=== PATIENT | female | born 1965 | race Caucasian/White ===

== ENCOUNTER 2022-01-08 15:17 | Emergency (ER) | payer OTHER, SELFPAY ==
[2022-01-08 15:18] VITALS: BP 172/104; PULSE 90; RESP 18; TEMP 36.2; O2SAT 95; BMI 39.0
[2022-01-08 15:35] VITALS: O2SAT 99
--- NOTE | 2022-01-08 15:35 | EKG12_ITS ---
Test Reason : CP Blood Pressure : / mmHG Vent. Rate : 072 BPM Atrial Rate : 072 BPM P-R Int : 134 ms QRS Dur : 080 ms QT Int : 386 ms P-R-T Axes : 039 043 067 degrees QTc Int : 422 ms Normal sinus rhythm Low voltage QRS Borderline ECG Confirmed by YUE MISHRA, DAVID ([id number]), publication editor KEVIN ESTRADA ([id number]) on 01/10/2022 9:39:21 AM Referred By: DAKOTA/DOMITILA Confirmed By:DAVID TURNER MD
[2022-01-08 15:55] LABS: Absolute Neutrophil Count 3.9 X10^3/uL (2.0-7.7); Basophil# 0.03 X10^3/uL; Basophil% 0.4 % (0-1); Eosinophil# 0.46 X10^3/uL; Eosinophils% 6.8 % (0-5); Hematocrit 41.3 % (37-47); Hemoglobin 14.2 g/dL (12.0-15.0); Lymphocyte % 28.1 % (19-41); Mean Corp Hgb Conc 34.4 g/dL (32-36); Mean Corpuscular Hgb 30.5 pg (27.0-32.0); Mean Corpuscular Volume 88.6 fL (81-99); Mean Platelet Vol. 10.2 fl (6.2-12.0); Monocyte# 0.44 X10^3/uL; Monocyte% 6.5 % (0-10); NRBC Flagged by Analyzer 0 % (0-5); Neutrophil % 57.9 % (47-70); Platelet Count 244 K/mm3 (150-450); RBC Distribution Width CV 12.2 % (11.6-14.6); RBC Distribution Width SD 39.2 fl (35.1-43.9); Red Blood Count 4.66 M/mm3 (4.2-5.4); White Blood Count 6.8 K/mm3 (4.4-11.0)
[2022-01-08 16:17] LABS: Anion Gap 5 (5-15); BUN 19 mg/dL (7-18); BUN/Creat Ratio 22.4 RATIO (10-20); Calcium,Total 9.6 mg/dL (8.5-10.1); Chloride 110 mmol/L (98-107); Creatinine, Serum 0.85 mg/dL (0.55-1.02); EST Glomerular Filtration Rate 74 mL/min (>60); Est Glom Filt Rate - Afr Amer 89 mL/min (>60); Estimated Creatinine Clearance 100.14 ml/min; Glucose 114 mg/dL (74-106); Potassium 3.8 mmol/L (3.5-5.1); Sodium Level 141 mmol/L (136-145); Troponin-I HS 4 pg/mL (3.0-54.0)
--- NOTE | 2022-01-08 16:27 | RAD_ITS ---
History: chest pain EXAMINATION/TECHNIQUE: XR Chest 1 View: Portable COMPARISON: July 11, 2017 FINDINGS: LINES/DEVICES: None. LUNGS: No consolidation, edema or effusion. No pneumothorax. MEDIASTINUM AND CARDIOVASCULAR STRUCTURES: Cardiac silhouette not enlarged. And calcified mediastinal and hilar lymph nodes again seen. BONES AND SOFT TISSUES: Unremarkable. RAD/Chest 1 View (Portable) IMPRESSION: No radiographic evidence of acute cardiopulmonary disease. Old granulomatous disease. at 1658 Reported and signed by: Carlos Whitlock MD Electronically Signed: Carlos Whitlock MD at 16:57 EDT ,
--- NOTE | 2022-01-08 16:35 | EDS_ITS ---
HPI History of Present Illness Chief Complaint: Chest Pain Informant: patient and friend Onset/Context/Timing Onset: Hours (Onset at 1500) Activity at onset: sudden and rest Timing: Continuous Quality: Positive for Pressure Location: Substernal and - (Radiation to the left side) Current Severity: Mild Maximum Severity: Severe Worsened By: Nothing Relieved By: Nothing Associated Symptoms: Positive for Diaphoresis and Dyspnea; Negative for Nausea, Vomiting, Cough, Fever, Lightheadedness, Acid Reflux and Palpitations Narrative Narrative: Patient is a 56-year-old woman with history of sarcoidosis, hypertension who presents because of midsternal chest discomfort that started at 1500 while at work at rest. She was slightly diaphoretic and was noted to be dyspneic. She states the pain started in the middle of her chest eventually it radiated to the left side and left back area. Did not radiate to the shoulders, upper extremities, neck or jaw. She states it is essentially gone at the time that I performed the H&P. She did take a full-strength aspirin prior to to arrival. She denies history of hiatal hernia, GERD, peptic ulcer disease or gallbladder disease. She denies history of VTE and has no risk factors. Prior Similar Symptoms: No Recent Illness/Hospitalization: No CVD Risk Factors: Positive for Hypertension and Smoking (Quit approximately 30 years ago); Negative for Diabetes, Hypercholesterolemia and Family History 1' </=55 PE Risk Factors: Negative for Recent Travel/Surgery, Recent Immobilization, Prior DVT or PE, Cancer and OCP + Smoking + >/=35 TAD Risk Factors: Positive for Hypertension; Negative for Marfan's Syndrome and Family History [facility] Medical History (Updated 01/08/22 @ 18:[address] Juan Manuel Dent MD) Hypertension Sarcoidosis Home Medications albuterol sulfate 2.5 mg INHALATION TID 10/04/15 [History Last Taken 01/06/22] budesonide [Pulmicort] 0.5 mg INHALATION TID 10/04/15 [History Last Taken 01/06/22] Ener-C 1 cap PO/SL DAILY 01/08/22 [History Last Taken 01/06/22] Fish Oil 1 cap PO/SL DAILY 01/08/22 [History Last Taken 01/06/22] Sesame Seed Oil 1 cap PO/SL DAILY 01/08/22 [History Last Taken 01/06/22] Thymex 1 cap PO/SL DAILY 01/08/22 [History Last Taken 01/06/22] amlodipine 2.5 mg PO DAILY 01/08/22 [History Last Taken 01/08/22] calcium 600 mg PO DAILY 01/08/22 [History Last Taken 01/06/22] cetirizine [Zyrtec] 10 mg PO DAILY 01/08/22 [History Last Taken 01/05/22] grape seed extract 1 cap PO/SL DAILY 01/08/22 [History Last Taken 01/06/22] multivitamin 1 tab PO DAILY 01/08/22 [History Last Taken 01/06/22] prednisone 5 mg PO DAILY 01/08/22 [History Last Taken 01/08/22] Allergy/AdvReac Type Severity Reaction Status Date / Time iodine Allergy Hives Verified 01/08/22 15:21 Surgical History (Updated 01/08/22 @ 16:[address] Juan Manuel Dent MD) Previous section Social History (Updated 01/08/22 @ 16:[address] Juan Manuel Dent MD) household members: spouse Smoking Status: Former smoker substance use type: does not use ROS ROS ED Constitutional Constitutional ED: Denies chills, fever(s), subjective, sweats or weight loss Eyes Eyes: Reports none ENT ENT ED: Denies ear pain, rhinorrhea or sore throat Cardiovascular Cardiovascular: Denies orthopnea or paroxysmal nocturnal dyspnea Respiratory/Chest Respiratory/Chest: Reports dyspnea; Denies cough, dyspnea on exertion, orthopnea or paroxysmal nocturnal dyspnea Gastrointestinal Gastrointestinal: Reports nausea; Denies abdominal pain, constipation, diarrhea, melena or vomiting Genitourinary Genitourinary ED: Denies dysuria, hematuria or urinary frequency Musculoskeletal Musculoskeletal: Reports back pain; Denies arthralgias, myalgias or neck pain Integumentary Denies rash Neurologic Neurologic: Denies headache(s) or weakness Psychiatric Psychiatric: Denies anxiety or depression Endocrine Endocrinology: Denies polydipsia, polyphagia or polyuria Hematologic/Lymphatic Hematologic/Lymphatic: Denies anemia, easy bleeding or easy bruising EXAM Physical Exam Const Vital Signs: 01/08/22 15:18 01/08/22 15:35 01/08/22 17:17 Temperature 97.1 F L Temperature Source Temporal Pulse Rate 90 67 Respiratory Rate 18 15 Respiratory Pattern Blood Pressure 172/104 H 123/83 H Blood Pressure Mean 126 96 Pulse Ox 95 99 98 Oxygen Delivery Method Room Air Room Air Room Air 01/08/22 17:20 01/08/22 18:11 Temperature Temperature Source Pulse Rate 70 Respiratory Rate Respiratory Pattern Normal Blood Pressure 135/84 H Blood Pressure Mean 101 Pulse Ox Oxygen Delivery Method Positive well nourished, well developed and obese General Appearance ED: well developed and NAD; Negative for pallor Nutritional Appearance: obese HEENT Reports moist mucous membranes HEENT Narrative: Ears normal. Nares patent. normocephalic and atraumatic Eyes PERRL and EOMs intact bilaterally General Eye ED: Negative for pale conjunctiva or scleral icterus Neck no lymphadenopathy, supple and no JVD Chest Wall palpation of chest normal Resp normal respiratory effort and clear to auscultation bilaterally Effort and Inspection: Negative for respiratory distress Cardio regular rate, regular rhythm, S1 normal heart sound, S2 normal heart sound and no murmurs GI normal to inspection, nondistended, normoactive bowel sounds, soft to palpation, non-tender and non-distended Back/Spine no CVA tenderness Extremity normal to inspection Extremity Narrative: There is no asymmetry, swelling, discoloration, leg vein distention, palpable cords or tenderness along the distribution of the deep venous system. General Extremety ED: Yes edema; Negative for tenderness General Extremity: edema Neuro oriented x3 and CN's II-XII intact bilaterally Sensorium / Orientation: awake and alert Motor Exam: strength 5/5 throughout Psych mental status grossly normal Skin no rashes or lesions noted and no wounds General Skin Exam: Negative for jaundice or pallor Heart Score History: Moderately Suspicious ECG: Normal Age: >45 - <65 years Risk Factors: 1 or 2 Risk Factors Score: 3 MDM MDM MDM Narrative Medical decision making narrative: Patient presents with concerning story for cardiac ischemia. EKG and appropriate blood work was initiated per nurse protocol. Need to rule out noncardiac etiology. Lab Data Attestation: I reviewed the patient's lab results. Lab results narrative: First troponin was 4. Second troponin was 6. Both are less than 8 and delta is less than 7 therefore per algorithm negative predictive value is 100%. Therefore patient is safe to be discharged to home. Labs: Laboratory Results - last 24 hr 01/08/22 01/08/22 01/08/22 15:46 15:46 17:50 WBC 6.8 RBC 4.66 Hgb 14.2 Hct 41.3 MCV 88.6 MCH 30.5 MCHC 34.4 RDW Std Deviation 39.2 RDW Coeff of Jonathan 12.2 Plt Count 244 MPV 10.2 Immature Gran % (Auto) 0.300 Neut % (Auto) 57.9 Lymph % (Auto) 28.1 [place] % (Auto) 6.5 Eos % (Auto) 6.8 H Baso % (Auto) 0.4 Absolute Neuts (auto) 3.9 Absolute Lymphs (auto) 1.90 Nucleated RBC % 0 Sodium 141 Potassium 3.8 Chloride 110 H Carbon Dioxide 26.0 Anion Gap 5 BUN 19 H Creatinine 0.85 Estim Creat Clear Calc 100.14 Est GFR (MDRD) Af Amer 89 Est GFR (MDRD) Non-Af 74 BUN/Creatinine Ratio 22.4 H Glucose 114 H Calcium 9.6 Troponin I High Sens 4 6 Radiography Chest X-Ray - ED: 1 View, Read by ED Physician ([id number]), Heart, Lungs, Mediastinum (Patient has granulomatous disease consistent with sarcoidosis.), Bony Structures and No Acute Disease Diagnostic Testing: Clinical Impression(s) from Imaging Studies Chest X-Ray 01/08/22 16:27 IMPRESSION: No radiographic evidence of acute cardiopulmonary disease. Old granulomatous disease. at 1658 Reported and signed by: Carlos Whitlock MD Electronically Signed: Carlos Whitlock MD at 16:57 EDT , EKG Initial EKG: Attestation: I personally reviewed and interpreted this EKG as follows: Interpretation: Sinus Rhythm (Ventricular rate is 72. SC interval is 134 ms. Cures duration 80 ms. QT duration 386 ms. [place] is normal. Voltage is low. There is no acute ischemic changes noted.) Prior EKG tracings: available for review (The only difference to comparison EKG dated October 04, 2015 is the low voltage was not present) Discharge Plan Triage Chief Complaint: Chest Pain ED Provider: Juan Manuel Dent Dx/Rx/DC Orders Clinical Impression: Chest pain, midsternal Instructions: ED Chest Pain, Noncardiac Prescriptions: No Action albuterol sulfate 2.5 MG/3 ML solution for nebulization 2.5 mg inhalation TID RF: 0 budesonide [Pulmicort] 0.5 mg/2 mL suspension for nebulization 0.5 mg inhalation TID RF: 0 multivitamin Tablet 1 tab PO DAILY RF: 0 calcium 600 mg Capsule 600 mg PO DAILY RF: 0 cetirizine [Zyrtec] 10 mg Tablet 10 mg PO DAILY RF: 0 prednisone 5 mg tablet 5 mg PO DAILY RF: 0 amlodipine 2.5 mg tablet 2.5 mg PO DAILY RF: 0 Ener-C 1 cap PO/SL DAILY RF: 0 Fish Oil 1 cap PO/SL DAILY RF: 0 Sesame Seed Oil 1 cap PO/SL DAILY RF: 0 Thymex 1 cap PO/SL DAILY RF: 0 grape seed extract 1 cap PO/SL DAILY RF: 0 Primary Care Provider: Apurva Ladd Referrals: Apurva Ladd DO [Primary Care Provider] - 3-5 Days if not improving Disposition Disposition: Home, Self Care
[2022-01-08 17:17] VITALS: BP 123/83; PULSE 67; RESP 15; O2SAT 98
[2022-01-08 18:11] VITALS: BP 135/84; PULSE 70
[2022-01-08 18:16] LABS: Troponin-I HS 6 pg/mL (3.0-54.0)
[2022-01-08 19:05] VITALS: BP 135/81; PULSE 80; RESP 17; O2SAT 96
== END 2022-01-08 19:11 | disposition home or self-care (01) ==
PROVIDERS: Emergency Provider Emergency Medicine; PCP Internal Medicine; Visit Provider Emergency Medicine
DX: R07.2 Precordial pain (principal); Z87.891 Personal history of nicotine dependence; I10 Essential (primary) hypertension; D86.9 Sarcoidosis, unspecified
CPT/HCPCS: 71045; 80048; 84484; 85025; 93005; 99285; A4216

== ENCOUNTER → 2024-09-14 | Outpatient (CLI) | payer OTHER, SELFPAY ==
[2024-09-14 13:02] LABS: Absolute Lymphocyte Count 1.96 X10^3/uL (0.83-4.51); Absolute Neutrophil Count 3.6 X10^3/uL (2.0-7.7); Basophil# 0.03 X10^3/uL; Basophil% 0.5 % (0-1); Eosinophil# 0.34 X10^3/uL; Eosinophils% 5.3 % (0-5); Hematocrit 41.2 % (37-47); Hemoglobin 13.9 g/dL (12.0-15.0); Lymphocyte # 1.96 X10^3/ul (0.83-4.51); Lymphocyte % 30.8 % (19-41); Mean Corp Hgb Conc 33.7 g/dL (32-36); Mean Corpuscular Hgb 29.4 pg (27.0-32.0); Mean Corpuscular Volume 87.1 fL (81-99); Mean Platelet Vol. 10.4 fl (6.2-12.0); Monocyte# 0.45 X10^3/uL; Monocyte% 7.1 % (0-10); NRBC Flagged by Analyzer 0 % (0-5); Neutrophil # 3.56 X10^3/uL (2.7-7.7); Platelet Count 200 K/mm3 (150-450); RBC Distribution Width CV 11.8 % (11.6-14.6); RBC Distribution Width SD 37.6 fl (35.1-43.9); Red Blood Count 4.73 M/mm3 (4.2-5.4); White Blood Count 6.4 K/mm3 (4.4-11.0)
[2024-09-20 12:08] LABS: Angiotensin Convert Enzyme 61 U/L (14-82); Aspirgillus flavus Negative (Neg:<1:1); Aspirgillus fumigatus Negative (Neg:<1:1); Aspirgillus niger Negative (Neg:<1:1); Cytoplasmic Ab (C-ANCA) <1:20 titer (Neg:<1:20); Immunoglobulin E 60 IU/mL (6-495); Perinuclear Ab (P-ANCA) <1:20 titer (Neg:<1:20)
[2024-09-22 16:10] LABS: Alternaria tenuis <0.10 kU/L (Class 0); Ash, White <0.10 kU/L (Class 0); Aspergillus fumigatus <0.10 kU/L (Class 0); Bermuda Grass <0.10 kU/L (Class 0); Birch <0.10 kU/L (Class 0); Black Walnut <0.10 kU/L (Class 0); Cat Hair / Dander,Stand <0.10 kU/L (Class 0); Cedar, Mountain <0.10 kU/L (Class 0); Cladosporium herbarum <0.10 kU/L (Class 0); Cockroach, American 0.24 kU/L (Class 0/I); Cottonwood <0.10 kU/L (Class 0); D farinae Mite <0.10 kU/L (Class 0); D pteronyssinus <0.10 kU/L (Class 0); Dog Epithelia <0.10 kU/L (Class 0); Elm, American White <0.10 kU/L (Class 0); Immunoglobulin E 61 IU/mL (6-495); Maple/Box Elder <0.10 kU/L (Class 0); Mouse Urine <0.10 kU/L (Class 0); Mulberry, White <0.10 kU/L (Class 0); Oak, White <0.10 kU/L (Class 0); Pecan <0.10 kU/L (Class 0); Penicillium Notatum <0.10 kU/L (Class 0); Pigweed, Rough <0.10 kU/L (Class 0); Ragweed, Short/Common <0.10 kU/L (Class 0); Russian Thistle <0.10 kU/L (Class 0); Sheep Sorrel <0.10 kU/L (Class 0); Sycamore, American <0.10 kU/L (Class 0); Timothy Grass <0.10 kU/L (Class 0)
== END | disposition home or self-care (01) ==
LOC: LAB 12:07
PROVIDERS: PCP Internal Medicine; Referring Provider Internal Medicine Critical Care Medicine; Visit Provider Internal Medicine Critical Care Medicine
DX: J45.909 Unspecified asthma, uncomplicated (principal); D86.9 Sarcoidosis, unspecified
CPT/HCPCS: 36415; 82164; 82785; 85025; 86003; 86037; 86606

== ENCOUNTER → 2024-09-21 | Outpatient (CLI) | payer OTHER, SELFPAY ==
[2024-09-21 12:45] VITALS: PULSE 102; PULSE 106; PULSE 110; PULSE 111; PULSE 86; PULSE 96; PULSE 97; O2SAT 93; O2SAT 94; O2SAT 95; O2SAT 96; O2SAT 97; O2SAT 98
--- NOTE | 2024-09-28 14:22 | PCM.PSN.6M ---
PSN 6 Minute Walk Test 6 Minute Walk Test 6 Minute Walk Test: 6 Minute Walk Test PSN:6-Minute Walk Test Start: 09/21/24 12:45 Freq: Status: Active Protocol: [id number] Document 09/21/24 12:45 NAUN (Rec: 09/21/24 12:48 ANJUON [id number]) 6 Minute Walk Test Date Performed 09/21/24 Time Performed 12:30 Height 4 ft 10 in Weight: 167 lb Weight in Pounds 167.[address]: Humberto Davis Assistive device used: None Pre-test Oxygen Delivery Method Room Air Pulse Ox (%) 98 Pulse Rate (60-100 beats/min) 96 Dyspnea Lauro Scale (0-10) 0.5 Exertion Lauro Scale (6-20) 6 1st minute Oxygen Delivery Method Room Air Pulse Ox (%) 96 Pulse Rate (60-100 beats/min) 97 2nd minute Oxygen Delivery Method Room Air Pulse Ox (%) 94 Pulse Rate (60-100 beats/min) 102 H 3rd minute Oxygen Delivery Method Room Air Pulse Ox (%) 94 Pulse Rate (60-100 beats/min) 102 H 4th minute Oxygen Delivery Method Room Air Pulse Ox (%) 94 Pulse Rate (60-100 beats/min) 106 H 5th minute Oxygen Delivery Method Room Air Pulse Ox (%) 93 Pulse Rate (60-100 beats/min) 110 H 6th minute Oxygen Delivery Method Room Air Pulse Ox (%) 95 Pulse Rate (60-100 beats/min) 111 H Dyspnea Lauro Scale (0-10) 4 Exertion Lauro Scale (6-20) 13 Reported Symptoms Increased Work of Breathing Post-test Oxygen Delivery Method Room Air Pulse Ox (%) 97 Pulse Rate (60-100 beats/min) 86 Full Laps Walked 21 Partial Lap, Number of Tiles Walked 5 Total Distance Walked (ft) 1244 Interpretation Interpretation: The patient ambulated 1244 feet over the course of 6 minutes beginning on room air without assistive devices. Pretesting oxygen saturation was noted to be 98% on room air. With ambulation, the freddie oxygen saturation was 93%. This represents a significant exertional oxygen desaturation, consistent with a pulmonary limitation to exercise tolerance. Recommendations Recommendations: There is no indication for the use of supplemental oxygen at this time. However, close interval follow-up was recommended, given the degree of oxygen desaturation noted during this study.
== END | disposition home or self-care (01) ==
LOC: PSN 12:16
PROVIDERS: PCP Internal Medicine; Referring Provider Internal Medicine Critical Care Medicine; Visit Provider Internal Medicine Critical Care Medicine
DX: J45.909 Unspecified asthma, uncomplicated (principal); D86.9 Sarcoidosis, unspecified
CPT/HCPCS: 94618

== ENCOUNTER → 2024-10-06 | Outpatient (CLI) | payer OTHER, SELFPAY | END | disposition home or self-care (01) | LOC: PSN 12:53 | PROVIDERS: PCP Internal Medicine; Referring Provider Internal Medicine Critical Care Medicine; Visit Provider Internal Medicine Critical Care Medicine | DX: J45.909 Unspecified asthma, uncomplicated (principal); D86.9 Sarcoidosis, unspecified | CPT/HCPCS: 94060; 94726; 94729 ==

== ENCOUNTER → 2024-11-03 | Outpatient (CLI) | payer OTHER, SELFPAY | END | disposition home or self-care (01) | PROVIDERS: PCP Internal Medicine; Referring Provider Internal Medicine Critical Care Medicine; Visit Provider Internal Medicine Critical Care Medicine | DX: J45.909 Unspecified asthma, uncomplicated (principal) | CPT/HCPCS: 87070; 87077; 87205; 87633; 87635 ==

== ENCOUNTER 2025-05-26 14:21 | Emergency (ER) | payer OTHER, SELFPAY ==
[2025-05-26 14:22] VITALS: BP 212/94; PULSE 55; RESP 16; TEMP 36.4; O2SAT 99; BMI 39.5
--- NOTE | 2025-05-26 15:14 | US_ITS ---
PROCEDURE: GALLBLADDER 05/26/2025 REASON FOR EXAM: PAIN COMPARISON: None. FINDINGS: Liver: No evidence of hepatomegaly. The liver is measured at 15.2 cm in length. Diffuse increased echogenicity is most likely due to diffuse fatty infiltration of the liver. No focal hepatic process is evident. The main portal vein demonstrates hepatopetal flow. Gallbladder: A solitary gallstone is seen within the gallbladder lumen, measured at 2.1 x 1.0 x 1.9 cm. No evidence of gallbladder wall thickening or pericholecystic fluid. No sonographic De La Paz's sign was elicited. Common bile duct: Normal measuring 4.3 mm diameter.. Pancreas: Visualized portions are sonographically unremarkable. Other: A mild degree of right kidney hydronephrosis versus prominent collecting system noted. The right kidney is otherwise unremarkable, measured at 8.8 x 3.2 x 4.5 cm. Cortical thickness is measured at 10 mm. No calculus is sonographically evident. US/Gallbladder IMPRESSION: 1. Cholelithiasis. 2. Findings most consistent with diffuse fatty infiltration of the liver. 3. No focal hepatic process is seen. 4. Mild degree of right kidney hydronephrosis versus prominent right renal sharri ecting system. Reading Location: [place] [address]
--- NOTE | 2025-05-26 15:21 | ED.VIS.GI ---
HPI HPI - GI History of Present Illness Chief Complaint: Abd Pain Informant: patient Narrative Narrative: Presents pain upper abdomen more in the right side 2 hours ago. Last thing she ate 730 when she had breakfast pizza. Nausea and vomiting now resolved. Pain improved. She had similar symptoms a month ago she had salad with dressing. Abdominal surgical is only C-sections. No fever chills or sweats. Has not had this evaluated. History of sarcoidosis on medications. Chronic cough from this. Elevated blood pressure on arrival, no headaches no chest pains. Prior similar symptoms: Yes PFSH PFSH Medical History Hypertension Sarcoidosis Home Medications ?Medication ?Instructions ?Recorded ?Last Taken ?Type albuterol sulfate 2.5 mg/3 mL 2.5 mg inhalation TID 10/04/15 01/06/22 History (0.083 %) solution for nebulization budesonide 0.5 mg/2 mL suspension 0.5 mg inhalation TID 10/04/15 01/06/22 History for nebulization (Pulmicort) Ener-C 1 cap PO/SL DAILY SUPPLEMENT 01/08/22 01/06/22 History cetirizine 10 mg tablet (Zyrtec) 10 mg PO DAILY 01/08/22 01/05/22 History budesonide-formoterol HFA 160 2 puff inhalation BID #10.2 grams 09/14/24 Unknown Rx mcg-4.5 mcg/actuation aerosol inhaler (Symbicort) albuterol sulfate 90 mcg/actuation 1 - 2 puff inhalation Q6 PRN 11/03/24 Unknown History aerosol inhaler montelukast 10 mg tablet 10 mg PO QPM #90 tabs 11/16/24 Unknown Rx latanoprost 0.005 % eye drops 1 drp ophthalmic (eye) QHS 12/28/24 Unknown History fluticasone propionate 50 2 spray intranasal DAILY #16 grams 05/25/25 Unknown Rx mcg/actuation nasal spray,suspension ondansetron 4 mg disintegrating 4 mg PO Q8H PRN PRN Nausea #10 tabs 05/26/25 Unknown Rx tablet Allergy/AdvReac Type Severity Reaction Status Date / Time iodine Allergy Hives Verified 05/26/25 14:25 mepolizumab (From Nucala) AdvReac Severe shingles Verified 05/26/25 14:25 Surgical History Status post left cataract extraction Status post right cataract extraction Previous section Social History household members: spouse Smoking Status: Former smoker how long ago did patient quit smokin years ago substance use type: does not use ROS ROS ED Constitutional Constitutional ED: Denies fever(s) Cardiovascular Cardiovascular: Denies chest pain Respiratory/Chest Respiratory/Chest: Denies cough Gastrointestinal Gastrointestinal: Reports abdominal pain, nausea and vomiting; Denies diarrhea Musculoskeletal Musculoskeletal: Denies none Integumentary Denies rash or wounds Neurologic Neurologic: Denies weakness EXAM Physical Exam Const Vital Signs: 05/26/25 14:22 05/26/25 16:47 05/26/25 18:00 Temperature 97.6 F L Temperature Source Temporal Pulse Rate 55 L 62 Respiratory Rate 16 18 Blood Pressure 212/94 H 154/92 H Blood Pressure Mean 133 112 Pulse Ox 99 98 Oxygen Delivery Method Room Air 05/26/25 19:46 Temperature 98.7 F Temperature Source Pulse Rate 63 Respiratory Rate 15 Blood Pressure 150/81 H Blood Pressure Mean 104 Pulse Ox 99 Oxygen Delivery Method Positive well nourished and well developed General Appearance ED: well developed and NAD HEENT Reports moist mucous membranes normocephalic and atraumatic Eyes General Eye ED: Yes normal appearance of both eyes Neck full ROM Chest Wall Chest: Negative for tenderness Resp normal respiratory effort and normal air movement Effort and Inspection: symmetric chest movement; Negative for respiratory distress Cardio regular rate, regular rhythm and no murmurs Peripheral Pulses: pulses 2+ throughout GI normal to inspection, nondistended, normoactive bowel sounds GI Narrative: Very minimal tenderness right upper quadrant. No guarding or rebound. Negative McBurney's. Palpation: Negative for guarding or rebound tenderness present Extremity normal to inspection General Extremety ED: Negative for edema or tenderness General Extremity: Negative for edema Neuro oriented x3 and no sensory deficits noted Sensorium / Orientation: awake and alert Skin no rashes or lesions noted and no wounds MDM MDM MDM Narrative Medical decision making narrative: Interventions / MDM: Differential diagnosis: Biliary colic, cholelithiasis Diagnosis considered but do not suspect: No clinical cholecystitis. Renal colic My EKG interpretation: N/A Imaging independently reviewed and interpreted by myself: Right upper quadrant ultrasound: Cholelithiasis 1 in the lumen. Fatty liver. Normal common bile duct. However also reports mild degree of right hydronephrosis versus prominent collecting duct system. External documents reviewed: N/A Test considered but not ordered:N/A ED course: Patient currently resolved symptoms elevated blood pressure. From her history recurrence concerns for potential biliary colic. She has not had this evaluated. Will check abdominal labs, will get right upper quadrant ultrasound. 1642: Ultrasound with gallstone no cholecystitis normal common duct. Also reported mild degree of right hydronephrosis versus chronic collecting duct system. She did report severe pain causing nausea and vomiting. I will add a urine we discussed if she would like to look further with CT scan. Upon discussion with the patient and findings start with the ultrasound with cholelithiasis likely biliary colic. Discussed she did have severe pain causing nausea and vomiting that renal colic also is in differential. Discussed if she like to obtain CT risk and benefits with radiation exposure. She is concerned with cost. Discussed can least obtain a urine for evaluation infection or blood. She agrees with this. She remains asymptomatic. Recheck blood pressure 154/92 without any intervention. Urine with minimal blood no infection. Reevaluation she remained stable symptom-free. I will refer to general surgery as an outpatient. Discussed return precautions with the patient. All questions were answered. Re-evaluation: stable Disposition discussed with patient/family/significant other: Patient Case discussed with consulting clinician: N/A This note was generated with JumpChat dictation software. It may contain incorrect words, spelling, and punctuation that were not noted in checking the note before signing. Lab Data Attestation: I reviewed the patient's lab results. Labs: Laboratory Results - last 24 hr 05/26/25 05/26/25 15:42 16:46 WBC 8.4 RBC 4.61 Hgb 13.8 Hct 40.3 MCV 87.4 MCH 29.9 MCHC 34.2 RDW Std Deviation 38.5 RDW Coeff of Jonathan 12.0 Plt Count 215 MPV 11.0 Immature Gran % (Auto) 0.500 Neut % (Auto) 77.1 H Lymph % (Auto) 16.1 L [place] % (Auto) 5.1 Eos % (Auto) 0.7 Baso % (Auto) 0.5 Absolute Neuts (auto) 6.5 Absolute Lymphs (auto) 1.35 Nucleated RBC % 0 Sodium 139 Potassium 4.3 Chloride 105 Carbon Dioxide 23.2 Anion Gap 11 BUN 16 Creatinine 0.77 Estim Creat Clear Calc 76.53 Est GFR (MDRD) Non-Af 89 BUN/Creatinine Ratio 20.2 H Glucose 103 H Calcium 9.3 Total Bilirubin 0.30 Direct Bilirubin 0.11 AST 25 ALT 18 Alkaline Phosphatase 90 Total Protein 6.5 Albumin 4.1 Globulin 2.4 Lipase 39 Urine Color Straw Urine Clarity Clear Urine pH 6.0 Ur Specific [place] 1.015 Urine Protein 15 H Urine Glucose (UA) Normal Urine Ketones Negative Urine Occult Blood 10 H Urine Nitrite Negative Urine Bilirubin Negative Urine Urobilinogen Normal Ur Leukocyte Esterase Negative Urine RBC 0-5 SEEN Urine WBC 0-5 SEEN Ur Squamous Epith Cells 0-5 SEEN Urine Bacteria 0 SEEN Urine Mucus 0 SEEN Radiography Diagnostic Testing: Clinical Impression(s) from Imaging Studies Gallbladder Ultrasound 05/26/25 15:14 IMPRESSION: 1. Cholelithiasis. 2. Findings most consistent with diffuse fatty infiltration of the liver. 3. No focal hepatic process is seen. 4. Mild degree of right kidney hydronephrosis versus prominent right renal collecting system. Reading Location: [place] [address] Discharge Plan Triage Chief Complaint: Abd Pain ED Provider: Camden Alicea Dx/Rx/DC Orders Clinical Impression: Biliary colic, Cholelithiasis, Fatty liver Instructions: ED Gallstones with Biliary Colic Prescriptions: New ondansetron 4 mg tablet,disintegrating 4 mg PO Q8H PRN PRN (Reason: Nausea) Qty: 10 0RF No Action budesonide-formoterol [Symbicort] 160-4.5 mcg/actuation HFA aerosol inhaler 2 puff inhalation BID Qty: 10.2 6RF albuterol sulfate 90 mcg/actuation HFA aerosol inhaler 1 - 2 puff inhalation Q6 PRN montelukast 10 mg tablet 10 mg PO QPM Qty: 90 3RF latanoprost 0.005 % drops 1 drp ophthalmic (eye) QHS albuterol sulfate 2.5 MG/3 ML solution for nebulization 2.5 mg inhalation TID Patient Comments: SHORTESS OF BREATH budesonide [Pulmicort] 0.5 mg/2 mL suspension for nebulization 0.5 mg inhalation TID Patient Comments: BREATHING cetirizine [Zyrtec] 10 mg Tablet 10 mg PO DAILY Ener-C 1 cap PO/SL DAILY fluticasone propionate 50 mcg/actuation spray,suspension 2 spray intranasal DAILY Qty: 16 3RF Primary Care Provider: Apurva Ladd Referrals: Apurva Ladd DO [Primary Care Provider] - Bowen Silverman MD [Med Staff - Active Staff] - 1-2 Weeks Activity Restrictions/Additional Instructions: History symptoms are in for biliary colic. Ultrasound notes gallstones. No cholecystitis. Your labs are stable. Avoid greasy foods dairy foods fatty foods. Follow-up with Dr. Silverman. Symptoms return worsening is not controlled with medication return to ED for evaluation. Print Language: Wolof Disposition Disposition: Home, Self Care Discharge Date/Time: 05/26/25 19:47
[2025-05-26 16:35] LABS: Hematocrit 40.3 % (37-47); Hemoglobin 13.8 g/dL (12.0-15.0); Immature Granulocytes Count 0.040 X10^3/uL (0.0-0.0); Mean Corp Hgb Conc 34.2 g/dL (32-36); Mean Corpuscular Volume 87.4 fL (81-99); Mean Platelet Vol. 11.0 fl (6.2-12.0); NRBC Flagged by Analyzer 0 % (0-5); Platelet Count 215 K/mm3 (150-450); RBC Distribution Width CV 12.0 % (11.6-14.6); RBC Distribution Width SD 38.5 fl (35.1-43.9); Red Blood Count 4.61 M/mm3 (4.2-5.4); White Blood Count 8.4 K/mm3 (4.4-11.0)
[2025-05-26 16:43] LABS: Lipase 39 U/L (13-75)
[2025-05-26 16:46] LABS: AST(SGOT) 25 U/L (<=31); Alanine Aminotransfer ALT/SGPT 18 U/L (<=34); Albumin, Serum 4.1 g/dL (3.5-5.0); Alkaline Phosphatase 90 U/L (35-104); Anion Gap 11 (5-15); BUN 16 mg/dL (4-19); BUN/Creat Ratio 20.2 RATIO (10-20); Bilirubin, Direct 0.11 mg/dL (0.00-0.30); Calcium,Total 9.3 mg/dL (7.6-11.0); Carbon Dioxide 23.2 mmol/L (21.0-32.0); Chloride 105 mmol/L (98-108); Estimated Creatinine Clearance 76.53 ml/min (50-250); Globulin 2.4 g/dL (2.2-4.2); Glucose 103 mg/dL (70-99); Potassium 4.3 mmol/L (3.3-5.1)
[2025-05-26 16:47] VITALS: BP 154/92
[2025-05-26 16:53] LABS: Mucous, Urine 0 SEEN /hpf (<or=2+)
[2025-05-26 17:51] LABS: Color, Urine Straw (Yellow); Glucose, Dipstick Normal (Normal); Ketone-Dipstick Negative (Negative); Leukocyte Esterase-Dipstick Negative /ul (Negative); Nitrite-Dipstick Negative (Negative); Occult Blood-Urine 10 /ul (Negative); Protein-Dipstick 15 mg/dl (Negative); Specific Gravity, Urine 1.015 (1.002-1.030); Urine Bilirubin Dipstick Negative (Negative)
[2025-05-26 18:00] VITALS: PULSE 62; RESP 18; O2SAT 98
[2025-05-26 18:56] LABS: Red Blood Cells-Urine 0-5 SEEN /hpf (0-5); Squamous Epithelial Cells - UA 0-5 SEEN /hpf (5-10)
[2025-05-26 19:46] VITALS: BP 150/81; PULSE 63; RESP 15; TEMP 37.1; O2SAT 99
== END 2025-05-26 19:47 | disposition home or self-care (01) ==
PROVIDERS: Emergency Provider Emergency Medicine; PCP Internal Medicine; Referring Provider Emergency Medicine; Visit Provider Emergency Medicine
DX: K80.70 Calculus of gallbladder and bile duct without cholecystitis without obstruction (principal); I10 Essential (primary) hypertension; K76.0 Fatty (change of) liver, not elsewhere classified; Z87.891 Personal history of nicotine dependence; R10.11 Right upper quadrant pain; Z98.41 Cataract extraction status, right eye; Z98.42 Cataract extraction status, left eye
CPT/HCPCS: 76705; 80048; 80076; 81001; 83690; 85025; 99284; A4216

== ENCOUNTER 2025-06-30 08:01 | Day surgery (SDC) | payer OTHER, SELFPAY ==
--- NOTE | 2025-06-28 11:55 | EKG12_ITS ---
Test Reason : PREOP Blood Pressure : */* mmHG Vent. Rate : 72 BPM Atrial Rate : 72 BPM P-R Int : 134 ms QRS Dur : 76 ms QT Int : 412 ms P-R-T Axes : 52 50 78 degrees QTcB Int : 451 ms Normal sinus rhythm Normal ECG Confirmed by Nathan Rick ([id number]), art editor NGOZI GUZMAN ([id number]) on 06/29/2025 6:34:28 AM Referred By: Bowen Silverman Confirmed By: Nathan Rick
[2025-06-28 12:46] LABS: Prothrombin Time (Protime)PT. 13.4 SECONDS (11.7-14.9)
[2025-06-28 12:47] LABS: Partial Thromboplast Time 25.3 Seconds (24.1-36.2)
[2025-06-30] VITALS (12 sets, daily range): BP systolic 128–170; BP diastolic 69–95; PULSE 59–92; RESP 16–20; TEMP 36.1–36.4; O2SAT 92–100; BMI 39.4
[2025-06-30] MEDS: Lactated Ringers 1,000 ML 15 ML IV (08:53)
[2025-06-30] MEDS: INDOCYANINE GREEN 3.75 MG in Syringe 1.5 ML 999 MG IV (09:00)
--- NOTE | 2025-06-30 09:02 | PRE.ANES_ITS ---
ASA Classification* ASA Classification ASA Classification: 3 Assessment & Plan Anesthesia* Anesthesia Assessment Anesthesia Assessment: Discussed sedation and/or anesthesia options, risks, benefits, and alternatives with patient/parents/legal guardian/POA. Questions invited. The patient/parents/legal guardian/POA seems to understand and agrees to proceed with anesthesia plan. Reviewed the physical assessment, medical history, allergy history and patient home medications list prior to surgery/procedure/anesthetic and documented any changes. Performed airway and anesthesia risk assessments. Anesthesia Type Anesthesia Type: General History Source History Obtained from:: Patient and Chart Anesthesia Focused Assessment* Temperature: 97 F Pulse Rate: 64 Blood Pressure: 148/95 Respiratory Rate: 16 Pulse Ox: 98 Oxygen Delivery Method: Room Air Airway Assessment Mouth opens: >3 cm Mallampati Score: IV Teeth Condition: Caps/Crowns (Patient has a crown. She also has 4 veneers on her top incisors. They are all tight.) Neck Range of motion (ROM): Limited ROM (Somewhat Decreased) Labs Anesthesia Preop lab: CBC WBC 8.4 K/mm3 (4.4-11.0) 05/26/25 15:42 05/26/25 RBC 4.61 M/mm3 (4.2-5.4) 05/26/25 15:42 05/26/25 Hgb 13.8 g/dL (12.0-15.0) 05/26/25 15:42 05/26/25 Hct 40.3 % (37-47) 05/26/25 15:42 05/26/25 Plt Count 215 K/mm3 (150-450) 05/26/25 15:42 05/26/25 CHEMISTRY Potassium 4.3 mmol/L (3.3-5.1) 05/26/25 15:42 05/26/25 Sodium 139 mmol/L (133-145) 05/26/25 15:42 05/26/25 BUN 16 mg/dL (4-19) 05/26/25 15:42 05/26/25 Creatinine 0.77 mg/dL (0.70-1.20) 05/26/25 15:42 05/26/25 Glucose 103 mg/dL (70-99) H 05/26/25 15:42 05/26/25 COAG PT 13.4 SECONDS (11.7-14.9) 06/28/25 12:21 Pre-Assessment Diagnosis/Proposed Procedure Planned Operative Procedure(s): ROBOTIC cholecystectomy Anesthesia History 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 When Was Last Pacemaker Check QUESTION #4 FULL TEXT: You/Your Family Experience fever (hyperthermia) with Anesthesia Last Oral Intake Last Oral intake: Last Oral Intake NPO since 18:30 06/30/25 08:47 Meds taken in AM with sips of water? Meds patient instructed to take am of surgery PONV PONV - flight kitchen manager: PONV - flight kitchen manager Female Yes 06/22/25 14:59 HX of Motion Sickness Yes 06/22/25 14:59 HX of N/V After Surgery No 06/22/25 14:59 Non-Smoker Yes 06/22/25 14:59 Duration of Surgery greater No 06/22/25 14:59 than 60 minutes Number of Risk Factors 3 06/22/25 14:59 PONV Score Moderate Risk 06/22/25 14:59 Height & Weight Height & Weight: Anesthesia: Height & Weight Height 4 ft 9 in 06/30/25 08:47 Weight: 82.554 kg 06/30/25 08:47 Body Mass Index (BMI) 39.4 06/30/25 08:47 Respiratory Assessment Respiratory Assessment - flight kitchen manager: Respiratory Tract Infection Hx - flight kitchen manager Hx Respiratory Tract Infection No 06/22/25 14:59 Any additional information?: Yes Hx Respiratory Tract Infection: Yes History of Anesthesia Respiratory Infection details: Patient has had a recent worsening of her asthma symptoms. Slight wheezing on pulmonary exam. Will give albuterol nebulized treatment. STOP Sleep Apnea STOP Sleep Apnea - flight kitchen manager: STOP Sleep Apnea - flight kitchen manager Hx Hypertension Yes: NO MEDS FOR 3 YRS 06/22/25 14:59 Hx Sleep Apnea No 06/22/25 14:59 CPAP No 10/04/15 19:21 BIPAP No 10/04/15 19:21 Do you snore loudly (louder No 06/22/25 14:59 than talking or can be heard Do you often feel tired/ Yes 06/22/25 14:59 fatigued/ sleepy during daytime? Has anyone observed you stop No 06/22/25 14:59 breathing during sleep? STOP Results Positive 06/22/25 14:59 QUESTION #5 FULL TEXT : Do you snore loudly (louder than talking or can be heard through closed doors)? 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 Specify any problems Hx of Preganancy in last 3 No 06/22/25 14:59 Months Nurse Filling Out Transfusion DSCHRIBER 06/22/25 14:59 & Questions: Date: 06/22/25 06/22/25 14:59 Time: 15:01 06/22/25 14:59 Patient unable to answer at this time (ie. confused, unrespo /Reproduction History /Reproductive History - flight kitchen manager: /Reproductive Hx- flight kitchen manager Hx Now No 06/22/25 14:59 Gestational Age (in weeks): EDC: Hx Hx Para Hx Section SAB No 06/22/25 14:59 Active Medications Active Medications: Current Medications Generic Name Dose Route Start Last Admin Trade Name Freq PRN Reason Stop Dose Admin Lactated Ringer's 1,000 mls @ 15 mls/hr 06/30/25 08:45 06/30/25 08:53 IV 15 mls/hr .Q48H BLANCA Administration PFSH Medical History (Updated 06/22/25 @ 15:06 by Flor Merrill) Wears glasses Post-menopausal Alcohol use Bruising Easy bruising Syncope Former smoker Asthma Shortness of breath on exertion History of edema History of echocardiogram History of stress test Hypertension Sarcoidosis Home Medications ?Medication ?Instructions ?Recorded ?Last Taken ?Type albuterol sulfate 2.5 mg/3 mL 2.5 mg inhalation TID MT N 10/04/15 06/30/25 History (0.083 %) solution for nebulization shortness of breat h or wheezing budesonide 0.5 mg/2 mL suspension 0.5 mg inhalation TI D PRN SOB 10/04/15 01/06/22 History for nebulization (Pulmicort) cetirizine 10 mg tablet (Zyrtec) 10 mg PO DAILY 01/05/22 History albuterol sulfate 90 mcg/actuation 1 - 2 puff inhalati on Q6 PRN 11/03/24 Unknown History aerosol inhaler shortness of breath or wheez ing montelukast 10 mg tablet 10 mg PO QPM #90 tabs Unknown Rx latanoprost 0.005 % eye drops 1 drp ophthalmic (eye) Q HS 12/28/24 Unknown History fluticasone propionate 50 2 spray intranasal DAILY #16 grams 05/25/25 Unknown Rx mcg/actuation nasal spray,suspension Allergy/AdvReac Type Severity Reaction Status Date / Time red dye Allergy Intermediate Hives Verified 06/30/25 08:43 iodine Allergy Hives Verified 06/30/25 08:43 mepolizumab (From Nucala) AdvReac Severe shingles Verified 06/30/25 08:43 Surgical History (Updated 06/22/25 @ 15:06 by Flor Merrill) History of bronchoscopy Status post left cataract extraction Status post right cataract extraction Previous section Social History (Updated 06/16/25 @ 09:04 by Skye Simental LPN) household members: spouse Smoking Status: Former smoker how long ago did patient quit smokin years ago alcohol intake: never substance use type: does not use Review of Systems (Anesthesia) ROS Narrative System reviewed and no additional complaints, except as documented.
[2025-06-30] MEDS: Albuterol 2.5 MG/3 ML VIAL.NEB. INHALATION (09:13)
--- NOTE | 2025-06-30 09:45 | GALL_PTH ---
PATIENT: CIARA OH LOC: [facility] [place] U#:[id number] AGE/SX: 60/F ROOM: RE06/30/[address]: Dr. Bowen Silverman MD : 1965 BED: DIS: 06/30/2025 SPEC #: [id number] RECD: 06/30/25 14:30 STATUS: GONZALEZ REMelquiades #: [id number] SHILPA: 06/30/25 09:[address]: Bowen Silverman DEPT: SURGICAL PATHOLOGY RECD BY: Kurt Watkins ENTERED: 06/30/25 15:55 SP TYPE: ELIESER COSTELLO DR: Dr. Apurva Ladd DO Tissues: A - Gallbladder, NOS Procedures: Surgery Specimen Level III HEADER OPERATION: Robotic cholecystectomy PRE-OP DIAGNOSIS: Right upper quadrant pain and gallstones TISSUE SUBMITTED: A- Gallbladder and contents MICROSCOPIC DIAGNOSIS A. Gallbladder, robotic cholecystectomy: - Chronic cholecystitis with mural lymphoid aggregates, favor reactive. - Cholelithiasis, cholesterolosis. - No neoplasia seen. MICROSCOPIC DESCRIPTION Slides are reviewed. GROSS DESCRIPTION A. Received in formalin labeled with the patient's name and date of . Designated as gallbladder and contents is a 5.8 x 2.8 x 2.1 cm carlson-pink, fatty and predominantly intact gallbladder with attached patent cystic duct (inked black, shaved). A lymph node is not present. Opening reveals yellow-green, tenacious bile and a 1.9 cm bile-stained, crystalline cholelith. The mucosa is pink-red and granular with a maximum wall thickness of 0.2 cm. There are 5 possible polyps (all measuring 0.3 cm), located >3.0 cm from the resection margin. Cholesterolosis is present. Row Boss sections are submitted in 2 cassettes as follows: A1: PolypsA2: Margin, cross-sections HI 06/30/2025 CPT:08288
--- NOTE | 2025-06-30 10:17 | HP.PCM_ITS ---
HPI - General General Date of Admission: 06/30/25 Date of Service: 06/30/25 Chief Complaint: Right upper quadrant pain and gallstones HPI Narrative CIARA OH, is a 60 F who presents today for elective robotic cholecystectomy. Patient has been having right upper quadrant pain consistent with biliary colic. She does have gallstones on ultrasound. [facility] Medical History (Updated 06/22/25 @ 15:06 by Flor Merrill) Wears glasses Post-menopausal Alcohol use Bruising Easy bruising Syncope Former smoker Asthma Shortness of breath on exertion History of edema History of echocardiogram History of stress test Hypertension Sarcoidosis Home Medications ?Medication ?Instructions ?Recorded ?Last Taken ?Type albuterol sulfate 2.5 mg/3 mL 2.5 mg inhalation TID NV N 10/04/15 06/30/25 History (0.083 %) solution for nebulization shortness of breat h or wheezing budesonide 0.5 mg/2 mL suspension 0.5 mg inhalation TI D PRN SOB 10/04/15 01/06/22 History for nebulization (Pulmicort) cetirizine 10 mg tablet (Zyrtec) 10 mg PO DAILY 01/05/22 History albuterol sulfate 90 mcg/actuation 1 - 2 puff inhalati on Q6 PRN 11/03/24 Unknown History aerosol inhaler shortness of breath or wheez ing montelukast 10 mg tablet 10 mg PO QPM #90 tabs Unknown Rx latanoprost 0.005 % eye drops 1 drp ophthalmic (eye) Q HS 12/28/24 Unknown History fluticasone propionate 50 2 spray intranasal DAILY #16 grams 05/25/25 Unknown Rx mcg/actuation nasal spray,suspension Allergy/AdvReac Type Severity Reaction Status Date / Time red dye Allergy Intermediate Hives Verified 06/30/25 08:43 iodine Allergy Hives Verified 06/30/25 08:43 mepolizumab (From Nucala) AdvReac Severe shingles Verified 06/30/25 08:43 Surgical History (Updated 06/22/25 @ 15:06 by Flor Merrill) History of bronchoscopy Status post left cataract extraction Status post right cataract extraction Previous section Social History (Updated 06/16/25 @ 09:04 by Skye Simental LPN) household members: spouse Smoking Status: Former smoker how long ago did patient quit smokin years ago alcohol intake: never substance use type: does not use Vital Signs Vital Signs Vital Signs: 06/30/25 08:44 06/30/25 08:47 06/30/25 09:11 Temperature 97 F L 97 F L Temperature Source Temporal Pulse Rate 64 64 Respiratory Rate 16 16 Respiratory Pattern Normal Blood Pressure 148/95 H 148/95 H Blood Pressure Mean 112 Blood Pressure Source Monitor Blood Pressure Position Semi-Fowlers Blood Pressure Location Left Arm Pulse Ox 98 98 Oxygen Delivery Method Room Air Room Air 06/30/25 09:13 Temperature Temperature Source Pulse Rate 59 L Respiratory Rate 16 Respiratory Pattern Normal Blood Pressure Blood Pressure Mean Blood Pressure Source Blood Pressure Position Blood Pressure Location Pulse Ox Oxygen Delivery Method Weight Weight: 182 lb Body Mass Index (BMI) 39.4 Physical Exam Const alert, oriented x3 and no apparent distress Assessment & Plan Assessment/Plan (1) Abdominal pain: PLAN: Plan The patient is a 60-year-old female with right upper quadrant pain and gallstones. I have offered her a robotic cholecystectomy. We discussed the details of the planned procedure including risks benefits and alternatives. She wishes to proceed. Surgery will begin momentarily
[2025-06-30] MEDS: Lactated Ringers 1,000 ML 1000 ML IV (10:49)
[2025-06-30] MEDS: Midazolam 2 MG/2 ML Syringe IV (10:49)
[2025-06-30] MEDS: Lidocaine 1% (5 ml sdv) 5 ML Vial IV (10:55)
[2025-06-30] MEDS: Bupiv/Epi 0.25% 30 ML Vial (12:04)
--- NOTE | 2025-06-30 12:06 | DCINST_ITS ---
Discharge Instructions Diet Discharge Diet: Light diet - advance as tolerated Activity May shower in (days): 1 Ice area for (Minutes): 30 Lifting Restrictions: No lifting pushing or pulling more than 20 pounds for 4 weeks Dressing / Incision Call your doctor if your incision/area has: Continuous Slow Oozing, Sudden Increased Bleeding, Increased Pain/ Swelling, Increased Redness, Foul Smelling Discharge and Swelling at the incision site Call your doctor if you observe: Fever of 101 or Higher Cleanse incision/area with: Soap & Water Follow Up Care Please Follow Up With: Bowen Silverman MD When: 2 weeks. Please call to schedule appointment Test Results: Test results from this visit will be discussed in further detail at your follow- up appointment, if applicable. Discharge Plan Admission Primary Reason for Your Visit: Robotic cholecystectomy Attending Provider: Bowen Silverman Primary Care Provider: Apurva Ladd Instructions Print Language: Afghan Discharge Orders/Prescriptions Prescriptions: New tramadol 50 mg tablet 50 mg PO Q8H PRN (Reason: pain) 3 Days Qty: 10 0RF Continued albuterol sulfate 90 mcg/actuation HFA aerosol inhaler 1 - 2 puff inhalation Q6 PRN (Reason: shortness of breath or wheezing) montelukast 10 mg tablet 10 mg PO QPM Qty: 90 3RF latanoprost 0.005 % drops 1 drp ophthalmic (eye) QHS albuterol sulfate 2.5 MG/3 ML solution for nebulization 2.5 mg inhalation TID PRN (Reason: shortness of breath or wheezing) Patient Comments: SHORTESS OF BREATH budesonide [Pulmicort] 0.5 mg/2 mL suspension for nebulization 0.5 mg inhalation TID PRN (Reason: SOB) Patient Comments: BREATHING cetirizine [Zyrtec] 10 mg Tablet 10 mg PO DAILY fluticasone propionate 50 mcg/actuation spray,suspension 2 spray intranasal DAILY Qty: 16 3RF Referrals / Follow Up: Apurva Ladd DO [Primary Care Provider] - Disposition Disposition (needs filled in before D/C Order can be placed): Home, Self Care
--- NOTE | 2025-06-30 12:10 | PCM.OPRPT ---
Problems Associated Problem List Diagnoses (1) Symptomatic cholelithiasis: Procedures Digestive 40xxx-49xxx: [id number] Laparo cholecystectomy/graph Operative Report (Standard) Operative Information Date of Procedure: 06/30/25 Pre-Operative Diagnosis: Symptomatic cholelithiasis Post-Operative Diagnosis: Same Surgery/Procedure Performed: Robotic cholecystectomy with intraoperative ICG cholangiogram submarine diver: Yes Security Developer: Анна Cao Tasks completed by airline pilot/first officer: Closing, Trocar and Other Additional children's nursery assistant?: No Type of Anesthesia: General and Local RN Documented Start/Stop Times: Operation Date: 06/30/25 09:45 Case Time Into Pre-Op 06/30/25 08:31 Anesthesia Start 06/30/25 10:50 Into Room 06/30/25 10:50 Out of Pre-Op 06/30/25 10:50 Procedure Start 06/30/25 11:11 Procedure Start Time: 11:11 Procedure Stop Time: 12:11 Select all DRAINS/GRAFTS/IMPLANTS that apply: None Special Medications: ICG Estimated Blood Loss: 10 mL Specimen collected: Yes Description of specimen(s) removed: Gallbladder Description of surgery: The patient is a 60-year-old female who was recently seen through the office with right upper quadrant pain and gallstones. Her symptoms seem consistent with biliary colic and so a robotic cholecystectomy was recommended as treatment. We discussed the details of the planned procedure including the risks benefits and alternatives. She wished to proceed. The patient was brought to the operative room today following informed consent. She was placed supine on the operative table with arms outstretched arm boards. Her abdomen was then prepped and draped in the usual sterile manner. A general endotracheal anesthesia was induced. Once adequately anesthetized the abdomen was then prepped and draped in the usual sterile manner. Arms were also then tucked at her sides. An 8 mm incision was made just above the umbilicus. Through this a 5 mm trocar was placed optically. This was placed without incident. Once in place the abdomen was then fully insufflated with CO2 gas. A 5 mm 0 degree scope was inserted. There were no signs of bowel or vascular injury. Next, an 8 mm trocar was placed under direct visualization in the right side of the abdomen. 2 additional 8 mm trocars were placed on the left side of the abdomen. The original umbilical trocar was also switched to an 8 mm trocar. She was then positioned with some head up and rolled to the left. The da Rowdy robot was then brought onto the operative field and appropriately docked. Once all the instruments were in place the gallbladder was identified and was reflected in a cephalad direction. The peritoneum on either side of the gallbladder was then incised using hook electrocautery. The infundibulum was then dissected. The cystic duct and cystic artery were both identified and dissected out circumferentially. ICG cholangiogram was then performed to confirm the anatomy of the cystic duct. The lower portion of the gallbladder was dissected off of the cystic plate thus allowing the establishment of a critical view of safety. There were 2 and only 2 structures coming to and from the infundibulum the gallbladder. There is being the cystic duct and cystic artery. Both structures were clipped proximally and distally and then transected using electrocautery and the hook. The gallbladder was then bovied off the undersurface of the liver. There was some spillage of bile. This bile was promptly suctioned out and irrigated with 2 L of saline. The gallbladder was then placed Endobag and brought out through the umbilical trocar site. The trocar was then replaced. Further irrigation was performed of the right upper quadrant until clear. Next the fascia at the umbilical trocar site was closed using 0 PDS with the aid of the fascial closure device. This closed the fascia nicely. There were no signs of bowel or vascular injury. The remaining trocars were then removed thus allowing the escape of insufflation. A total of 30 cc of local anesthetic were injected into the incisions throughout the course of the operation. The incisions were then closed with 4-0 Vicryl. Skin glue was applied as dressing. She was awakened from anesthesia and taken to recovery in good condition. Surgical Findings: See operative note Complications Complications: No Admit VTE Documentation VTE Present on Admission: No VTE Mechan Device Prophylaxis: SCD's VTE Pharm Prophylaxis ordered?: No Reason prophylaxis not ordered: Treatment Not Indicated
[2025-06-30] MEDS: fentaNYL 100 MCG/2 ML Ampul 200 MCG IV (12:22)
--- NOTE | 2025-06-30 12:27 | EX.PCM.DISCH ---
Discharge Instructions Diet Discharge Diet: Light diet - advance as tolerated Activity May shower in (days): 1 Ice area for (Minutes): 30 Dressing / Incision Call your doctor if your incision/area has: Continuous Slow Oozing, Sudden Increased Bleeding, Increased Pain/ Swelling, Increased Redness, Foul Smelling Discharge and Swelling at the incision site Call your doctor if you observe: Fever of 101 or Higher Cleanse incision/area with: Soap & Water Follow Up Care Please Follow Up With: Bowen Silverman MD Test Results: Test results from this visit will be discussed in further detail at your follow-up appointment, if applicable. Discharge Plan Admission Primary Reason for Your Visit: Robotic cholecystectomy Attending Provider: Bowen Silverman Primary Care Provider: Apurva Ladd Instructions Print Language: Persian Discharge Orders/Prescriptions Prescriptions: New tramadol 50 mg tablet 50 mg PO Q8H PRN (Reason: pain) 3 Days Qty: 10 0RF Continued albuterol sulfate 90 mcg/actuation HFA aerosol inhaler 1 - 2 puff inhalation Q6 PRN (Reason: shortness of breath or wheezing) montelukast 10 mg tablet 10 mg PO QPM Qty: 90 3RF latanoprost 0.005 % drops 1 drp ophthalmic (eye) QHS albuterol sulfate 2.5 MG/3 ML solution for nebulization 2.5 mg inhalation TID PRN (Reason: shortness of breath or wheezing) Patient Comments: SHORTESS OF BREATH budesonide [Pulmicort] 0.5 mg/2 mL suspension for nebulization 0.5 mg inhalation TID PRN (Reason: SOB) Patient Comments: BREATHING cetirizine [Zyrtec] 10 mg Tablet 10 mg PO DAILY fluticasone propionate 50 mcg/actuation spray,suspension 2 spray intranasal DAILY Qty: 16 3RF Referrals / Follow Up: Apurva Ladd DO [Primary Care Provider] - Disposition Disposition (needs filled in before D/C Order can be placed): Home, Self Care
--- NOTE | 2025-06-30 12:28 | PCM.POST.ANE ---
Anesthesia: Postop Eval I Current Vital Signs Temperature: 97.2 F Pulse Rate: 84 Blood Pressure: 136/81 Respiratory Rate: 20 Pulse Ox: 96 Oxygen Delivery Method: Room Air Assessment Airway patent: Yes Spontaneous unlabored respirations: Yes Mental status: Awake and Calm nausea: No Vomiting: No Anesthesia Complication: No Fluid Hydration Crystalloid volume administer (ml): 600 Total IV fluid infused: 600 Progress Note Anesthesia document: Postop Eval 1 completed: Yes
--- NOTE | 2025-06-30 12:40 | SUR.PHASEI ---
receiving nebulizer due to coughing
--- NOTE | 2025-06-30 15:25 | POSTOPAN2_ITS ---
Anesthesia Postop Eval I Sum Postop Eval Completion status Anesthesia document: Postop Eval 1 completed: Yes Anesthesia Postop Eval I Summary Anesthesia Postop Eval I Summary: Anesthesia Postop Eval I: Assessment Summary Airway patent Yes 06/30/25 12:29 TOOL AND DIE [email or web address] Spontaneous unlabored Yes 06/30/25 12:29 TOOL AND DIE [email or web address] respirations Mental status Awake,Calm 06/30/25 12:29 TOOL AND DIE [email or web address] nausea No 06/30/25 12:29 TOOL AND DIE [email or web address] Vomiting No 06/30/25 12:29 TOOL AND DIE [email or web address] Anesthesia Postop Eval I: Fluid Summary Crystalloid volume administer 600 06/30/25 12:29 TOOL AND [email or web address] [email or web address] (ml) Colloids volume administered ( ml) Blood Product volume administered (ml) Total IV fluid infused 600 06/30/25 12:29 TOOL AND DIE [email or web address] Anesthesia Postop Eval I: Summary Notes Anesthesia Complication No 06/30/25 12:29 TOOL AND DIE [email or web address] Anesthesia Complication Comment: Post-operative progress note Anesthesia: Postop Eval II Evaluation Mental status: Awake and Calm Pain Level: 1 nausea: No Vomiting: No Complications Anesthesia Complication: No
--- NOTE | 2025-06-30 15:25 | PCM.POSTANE2 ---
Anesthesia Postop Eval I Sum Postop Eval Completion status Anesthesia document: Postop Eval 1 completed: Yes Anesthesia Postop Eval I Summary Anesthesia Postop Eval I Summary: Anesthesia Postop Eval I: Assessment Summary Airway patent Yes 06/30/25 12:29 WASTE TREATMENT [email or web address] Spontaneous unlabored Yes 06/30/25 12:29 WASTE TREATMENT [email or web address] respirations Mental status Awake,Calm 06/30/25 12:29 WASTE TREATMENT [email or web address] nausea No 06/30/25 12:29 WASTE TREATMENT [email or web address] Vomiting No 06/30/25 12:29 WASTE TREATMENT [email or web address] Anesthesia Postop Eval I: Fluid Summary Crystalloid volume administer 600 06/30/25 12:29 WASTE TREATMENT [email or web address] (ml) Colloids volume administered ( ml) Blood Product volume administered (ml) Total IV fluid infused 600 06/30/25 12:29 WASTE TREATMENT [email or web address] Anesthesia Postop Eval I: Summary Notes Anesthesia Complication No 06/30/25 12:29 WASTE TREATMENT [email or web address] Anesthesia Complication Comment: Post-operative progress note Anesthesia: Postop Eval II Evaluation Mental status: Awake and Calm Pain Level: 1 nausea: No Vomiting: No Complications Anesthesia Complication: No
== END 2025-06-30 15:14 | disposition home or self-care (01) ==
LOC: SDC 08:01 → AC 08:02
PROVIDERS: Anesthesiology; PCP Internal Medicine; Referring Provider Surgery; Visit Provider Surgery
PROC: 0FT44ZZ Resection of Gallbladder, Percutaneous Endoscopic Approach (ICD-10-PCS; CPT 47562; principal; 2025-06-30 09:25)
DX: K80.10 Calculus of gallbladder with chronic cholecystitis without obstruction (principal); Z87.891 Personal history of nicotine dependence; I10 Essential (primary) hypertension; J45.909 Unspecified asthma, uncomplicated
CPT/HCPCS: 47562; S2900; 00790; 36415; 85610; 85730; 88304; 93005; 94640; J2312; J2405

== ENCOUNTER → 2025-07-20 | Outpatient (CLI) | payer OTHER, SELFPAY | END | disposition home or self-care (01) | LOC: LABSPEC 11:00 | PROVIDERS: PCP Internal Medicine; Visit Provider Physician Assistant | DX: M54.50 Low back pain, unspecified (principal) | CPT/HCPCS: 87086; 87088 ==